=== PATIENT | male | born 1965 | race Caucasian/White ===

== ENCOUNTER 2023-12-09 06:07 | Observation (INO) ==
[~2023-12-09 06:07] MED LIST: Ampicillin ADVAN 2 GM in NS 0.9% 100 ML IVPB ONE; Buffered Lidocaine 1% SYRIN 1 ml INTRADERM ONE; Gentamicin ADULT 340 MG in NS 0.9% 100 ml BAG 100 ML IVPB ONE; Lactated Ringers 1000 ml BAG 1,000 ML IV SCH; Metoclopramide 5 MG/ML VIAL (10 mg) IV PRN; Naloxone 0.4 mg VIAL 0.4 mg/ml 1 ml VIAL IV PRN; Ondansetron 4 mg VIAL 2 MG/ML 2 ml VIAL IV PRN; Scopolamine 1 mg/72hr PATCH TRANSDERM ONE
[2023-12-09] MEDS ORDERED: Scopolamine 1 mg/72hr PATCH ONE (06:51)
[2023-12-09] MEDS ORDERED: Famotidine IV 10 MG/ML 2 ml VIAL (20 mg) ONE (06:51)
[2023-12-09] MEDS ORDERED: Lidocaine 2% PF 5 ML VIAL ONE (07:05)
[2023-12-09] MEDS ORDERED: fentaNYL 100 mcg/2 ml 50 MCG/ML VIAL ONE ×2 (07:05→08:20)
[2023-12-09] MEDS ORDERED: Midazolam 2 mg/2 ml VIAL 1 mg/ml 2 ml VIAL (2 mg) ONE (07:05)
[2023-12-09] MEDS ORDERED: Propofol 10 MG/ML 20 ML BTL ONE (07:05)
[2023-12-09] MEDS ORDERED: Ondansetron 4 mg VIAL 2 MG/ML 2 ml VIAL IV PRN (07:21)
[2023-12-09 07:39] LABS: Rapid COVID-19 Molecular Undetected (Undetected)
[2023-12-09] MEDS ORDERED: Ondansetron 4 mg VIAL 2 MG/ML 2 ml VIAL ONE (07:53)
[2023-12-09] MEDS ORDERED: Dexamethasone IV 4 MG/ML VIAL 1 ml VIAL ONE (07:53)
[2023-12-09] MEDS ORDERED: Ampicillin ADVAN 2 GM in NS 0.9% 100 ML IVPB ONE (08:00)
[2023-12-09] MEDS: NS 0.9% 1000 ml BAG 1,000 ML IV SCH ×2 (11:08→19:39)
[2023-12-09] MEDS: Neomycin/Polym/Bacit TOP OINT 15 GM TOPICAL SCH ×4 (11:11→20:48)
[2023-12-09] MEDS: Magnesium Hydroxide LIQ 30 ML UDC PO SCH ×2 (11:17→20:47)
[2023-12-10] MEDS: NS 0.9% 1000 ml BAG 1,000 ML IV SCH (03:33)
[2023-12-10] MEDS: Neomycin/Polym/Bacit TOP OINT 15 GM TOPICAL SCH (07:49)
[2023-12-10] MEDS: Magnesium Hydroxide LIQ 30 ML UDC PO SCH (07:49)
== END 2023-12-10 11:45 | disposition home or self-care (01) ==
LOC: SSU 06:07 → OR 06:07
PROVIDERS: ADMIT Urology; ATTEND Urology